=== PATIENT | female | born 1960 | race Caucasian/White ===

== ENCOUNTER 2019-01-23 16:48 | Emergency (ER) | payer MEDICAID ==
[~2019-01-23] VITALS: Ht 175.3 cm; Wt 63.0 kg
[2019-01-23 16:51] VITALS: BP 166/116
[2019-01-23] MEDS ORDERED: CEPH250T PO (17:12)
== END 2019-01-23 17:36 | disposition home or self-care (01) ==
LOC: ER 16:49
DX: M79.645 Pain in left finger(s) (principal); Z88.5 Allergy status to narcotic agent; Z79.899 Other long term (current) drug therapy
CPT/HCPCS: 99283